=== PATIENT | male | born 1975 | race Caucasian/White ===

== ENCOUNTER 2019-05-04 11:49 | Inpatient (IN) | payer MEDICAID ==
[~2019-05-04] VITALS: Ht 167.6 cm; Wt 185.0 kg
[2019-05-04] MEDS ORDERED: HALOPERIDOL 5 MG TABLET PO PRN (13:00)
[2019-05-04 15:26] VITALS: BP 122/81
[2019-05-04] MEDS: OLANZapine 5 MG RAPDIS TABLET PO PRN (16:17)
[2019-05-04] MEDS: LORazepam 2 MG TABLET PO PRN (16:17)
[2019-05-04 16:25] VITALS: BP 114/72
[2019-05-05 01:35] VITALS: BP 148/86
[2019-05-05 03:34] VITALS: BP 130/90
[2019-05-05] MEDS: LORazepam 2 MG TABLET PO PRN ×4 (03:34→18:17)
[2019-05-05] MEDS ORDERED: PETROLATUM,WHITE 28 GM JELLY TP PRN (06:45)
[2019-05-05] MEDS ORDERED: MAGNESIUM HYDROXIDE SUSPENSION 30 ML UDCUP PO PRN (06:45)
[2019-05-05] MEDS ORDERED: LOPERAMIDE HCL 2 MG CAPSULE PO PRN (06:45)
[2019-05-05] MEDS ORDERED: CloNIDine HCL 0.1 MG TABLET PO PRN (06:45)
[2019-05-05] MEDS ORDERED: ALBUTEROL SULFATE HFA 90 MCG/PUFF 8 GM INHALER IH PRN (06:45)
[2019-05-05] MEDS ORDERED: MAG HYDROX/AL HYDROX/SIMETH ES 30 ML SUSPENSION UDCUP PO PRN (06:45)
[2019-05-05] MEDS ORDERED: BACITRACIN 28.4 GM OINTMENT TP PRN (06:45)
[2019-05-05] MEDS ORDERED: ACETAMINOPHEN 325 MG TABLET PO PRN (06:45)
[2019-05-05] MEDS ORDERED: ONDANSETRON HCL 4 MG TABLET PO PRN (06:45)
[2019-05-05] MEDS ORDERED: IBUPROFEN 600 MG TABLET PO PRN (06:45)
[2019-05-05] MEDS ORDERED: INFLUENZA VIRUS VACCINE QVS 2019-20 (3YR+)/PF 60 MCG/0.5 ML SYRINGE IM ONE (07:00)
[2019-05-05 07:57] LABS: BASOPHILS % (AUTO) 0.4 % (0.0-2.0); EOSINOPHILS % (AUTO) 3.3 % (1.0-6.0); HEMATOCRIT 49.4 % (41-53); HEMOGLOBIN 16.3 g/dL (13.5-17.5); LYMPHOCYTES # (AUTO) 3.1 K/uL (1.0-4.8); LYMPHOCYTES % (AUTO) 36.5 % (22.0-44.0); MEAN CORPUSCULAR HEMOGLOBIN 29.2 pg (26.0-34.0); MEAN CORPUSCULAR VOLUME 89 fL (80-100); MONOCYTES # (AUTO) 0.8 K/uL (0.1-1.0); MONOCYTES % (AUTO) 8.9 % (2.0-9.0); NEUTROPHILS # (AUTO) 4.3 K/uL (1.8-7.7); NEUTROPHILS % (AUTO) 50.9 % (40.0-70.0); PLATELET COUNT (AUTO) 281 K/uL (150-450); RED BLOOD CELL COUNT(AUTO) 5.57 MIL/uL (4.50-5.90); RED CELL DISTRIBUTION WIDTH 12.7 % (11.5-14.5)
[2019-05-05 08:18] LABS: ALANINE AMINOTRANSFERASE 41 U/L (12-78); ALBUMIN 3.7 g/dL (3.4-5.0); ALKALINE PHOSPHATASE 68 U/L (46-116); ANION GAP 9 mmol/L (8-16); ASPARTATE AMINOTRANSFERASE 19 U/L (15-37); BILIRUBIN,TOTAL 0.4 mg/dL (0.1-1.0); CALCIUM, TOTAL 9.2 mg/dL (8.8-10.5); CARBON DIOXIDE 26 mmol/L (22-29); CHLORIDE 105 mmol/L (98-107); CHOL/HDL RATIO 4.8 (4.2-7.3); CHOLESTEROL 176 mg/dL (131-200); CREATININE 0.98 mg/dL (0.60-1.30); FREE T4 (FREE THYROXINE) 1.11 ng/dL (0.76-1.46); GLOMERULAR FILTR. RATE CALC > 60 mL/min (>60); GLUCOSE,RANDOM 107 mg/dL (70-110); HDL CHOLESTEROL 37 mg/dL (40-60); LDL CHOL (CALC.) 103 mg/dL (0-130); SODIUM SERUM 140 mmol/L (136-145); THYROID STIMULATING HORMONE 1.16 uIU/mL (0.36-3.74); TOTAL PROTEIN, SERUM 7.2 g/dL (6.4-8.2); TRIGLYCERIDES 181 mg/dL (15-150); UREA NITROGEN, BLOOD 16 mg/dL (7-18)
[2019-05-05 08:21] VITALS: BP 128/86
[2019-05-05] MEDS: OMEPRAZOLE 20 MG CAPSULE PO SCH (08:45)
[2019-05-05] MEDS: DOCUSATE SODIUM 100 MG CAPSULE PO SCH (08:45)
[2019-05-05] MEDS: NICOTINE 21 MG/24 HOUR PATCH TD SCH (08:46)
[2019-05-05] MEDS: BuPROPion HCL XL 150 MG ER TABLET PO SCH (13:05)
[2019-05-05 16:07] VITALS: BP 109/80
[2019-05-05] MEDS: QUEtiapine FUMARATE 25 MG TABLET PO SCH (20:03)
[2019-05-06 02:36] VITALS: BP 123/82
[2019-05-06] MEDS: ZOLPIDEM TARTRATE 10 MG TABLET PO PRN (02:42)
[2019-05-06] MEDS: LORazepam 2 MG TABLET PO PRN ×4 (06:51→20:49)
[2019-05-06] MEDS: OLANZapine 5 MG RAPDIS TABLET PO PRN ×2 (06:52→21:04)
[2019-05-06 08:38] VITALS: BP 121/98
[2019-05-06] MEDS: BuPROPion HCL XL 150 MG ER TABLET PO SCH (08:44)
[2019-05-06] MEDS: DOCUSATE SODIUM 100 MG CAPSULE PO SCH (08:44)
[2019-05-06] MEDS: NICOTINE 21 MG/24 HOUR PATCH TD SCH (08:44)
[2019-05-06] MEDS: OMEPRAZOLE 20 MG CAPSULE PO SCH ×2 (08:44→08:59)
[2019-05-06 16:00] VITALS: BP 122/92
[2019-05-06] MEDS: QUEtiapine FUMARATE 25 MG TABLET PO SCH (20:46)
[2019-05-07 01:10] VITALS: BP 132/81
[2019-05-07 08:00] VITALS: BP 116/89
[2019-05-07] MEDS: LORazepam 2 MG TABLET PO PRN ×3 (08:01→16:30)
[2019-05-07] MEDS: DOCUSATE SODIUM 100 MG CAPSULE PO SCH (08:01)
[2019-05-07] MEDS: BuPROPion HCL XL 150 MG ER TABLET PO SCH (08:01)
[2019-05-07] MEDS: OMEPRAZOLE 20 MG CAPSULE PO SCH (08:01)
[2019-05-07] MEDS: NICOTINE 21 MG/24 HOUR PATCH TD SCH (08:01)
[2019-05-07 16:44] VITALS: BP 118/73
[2019-05-07] MEDS: OLANZapine 5 MG RAPDIS TABLET PO PRN (19:35)
[2019-05-07] MEDS: QUEtiapine FUMARATE 25 MG TABLET PO SCH (20:29)
[2019-05-08 01:27] VITALS: BP 117/82
[2019-05-08] MEDS: LORazepam 2 MG TABLET PO PRN ×4 (07:15→20:41)
[2019-05-08] MEDS: BuPROPion HCL XL 150 MG ER TABLET PO SCH (08:26)
[2019-05-08] MEDS: NICOTINE 21 MG/24 HOUR PATCH TD SCH (08:28)
[2019-05-08] MEDS: DOCUSATE SODIUM 100 MG CAPSULE PO SCH (08:31)
[2019-05-08] MEDS: OMEPRAZOLE 20 MG CAPSULE PO SCH (08:31)
[2019-05-08 09:09] VITALS: BP 135/95
[2019-05-08 16:10] VITALS: BP 129/85
[2019-05-08] MEDS: QUEtiapine FUMARATE 25 MG TABLET PO SCH (20:07)
[2019-05-09] MEDS: ZOLPIDEM TARTRATE 10 MG TABLET PO PRN ×2 (03:27→20:12)
[2019-05-09 03:39] VITALS: BP 109/73
[2019-05-09] MEDS: NICOTINE 21 MG/24 HOUR PATCH TD SCH (08:16)
[2019-05-09] MEDS: BuPROPion HCL XL 150 MG ER TABLET PO SCH (08:16)
[2019-05-09] MEDS: LORazepam 2 MG TABLET PO PRN ×2 (08:19→20:51)
[2019-05-09] MEDS: OMEPRAZOLE 20 MG CAPSULE PO SCH (08:20)
[2019-05-09] MEDS: DOCUSATE SODIUM 100 MG CAPSULE PO SCH (08:20)
[2019-05-09 08:31] VITALS: BP 136/91
[2019-05-09 16:09] VITALS: BP 131/73
[2019-05-09] MEDS: QUEtiapine FUMARATE 25 MG TABLET PO SCH (20:11)
[2019-05-10] MEDS: LORazepam 2 MG TABLET PO PRN ×2 (08:02→12:09)
[2019-05-10] MEDS: DOCUSATE SODIUM 100 MG CAPSULE PO SCH (08:03)
[2019-05-10] MEDS: BuPROPion HCL XL 150 MG ER TABLET PO SCH (08:03)
[2019-05-10] MEDS: OMEPRAZOLE 20 MG CAPSULE PO SCH (08:03)
[2019-05-10] MEDS: NICOTINE 21 MG/24 HOUR PATCH TD SCH (08:03)
[2019-05-10] MEDS: BENZOCAINE/MENTHOL LOZENGE MM PRN (08:59)
[2019-05-10 09:08] VITALS: BP 129/92
[2019-05-10] MEDS ORDERED: GuaiFENesin/D-METHORPHAN/PHENYLEPH 5 ML LIQUID ORAL.SYG PO PRN (10:00)
[2019-05-10 16:29] VITALS: BP 104/71
[2019-05-10] MEDS ORDERED: DiphenhydrAMINE HCL 50 MG CAPSULE PO PRN (18:15)
[2019-05-10] MEDS: QUEtiapine FUMARATE 25 MG TABLET PO SCH (21:12)
[2019-05-11] MEDS: OLANZapine 5 MG RAPDIS TABLET PO PRN ×2 (00:35→06:01)
[2019-05-11 03:45] VITALS: BP 111/84
[2019-05-11 07:45] LABS: BASOPHILS % (AUTO) 0.4 % (0.0-2.0); EOSINOPHILS % (AUTO) 6.9 % (1.0-6.0); HEMATOCRIT 47.7 % (41-53); HEMOGLOBIN 15.8 g/dL (13.5-17.5); LYMPHOCYTES # (AUTO) 3.9 K/uL (1.0-4.8); LYMPHOCYTES % (AUTO) 38.7 % (22.0-44.0); MEAN CORPUSCULAR HEMOGLOBIN 29.2 pg (26.0-34.0); MEAN CORPUSCULAR HGB CONC 33.1 G/dL (31.0-37.0); MEAN CORPUSCULAR VOLUME 89 fL (80-100); MONOCYTES # (AUTO) 0.9 K/uL (0.1-1.0); MONOCYTES % (AUTO) 8.7 % (2.0-9.0); NEUTROPHILS # (AUTO) 4.6 K/uL (1.8-7.7); NEUTROPHILS % (AUTO) 45.3 % (40.0-70.0); PLATELET COUNT (AUTO) 239 K/uL (150-450); RED BLOOD CELL COUNT(AUTO) 5.39 MIL/uL (4.50-5.90); RED CELL DISTRIBUTION WIDTH 12.9 % (11.5-14.5)
[2019-05-11 08:01] LABS: ALANINE AMINOTRANSFERASE 71 U/L (12-78); ALBUMIN 4.2 g/dL (3.4-5.0); ALKALINE PHOSPHATASE 82 U/L (46-116); ANION GAP 10 mmol/L (8-16); ASPARTATE AMINOTRANSFERASE 25 U/L (15-37); BILIRUBIN,TOTAL 0.3 mg/dL (0.1-1.0); CARBON DIOXIDE 28 mmol/L (22-29); CHLORIDE 102 mmol/L (98-107); CREATININE 0.98 mg/dL (0.60-1.30); GLOMERULAR FILTR. RATE CALC > 60 mL/min (>60); GLUCOSE,RANDOM 113 mg/dL (70-110); SODIUM SERUM 140 mmol/L (136-145); TOTAL PROTEIN, SERUM 7.4 g/dL (6.4-8.2); UREA NITROGEN, BLOOD 18 mg/dL (7-18)
[2019-05-11] MEDS: BuPROPion HCL XL 150 MG ER TABLET PO SCH (08:04)
[2019-05-11] MEDS: NICOTINE 21 MG/24 HOUR PATCH TD SCH (08:05)
[2019-05-11] MEDS: OMEPRAZOLE 20 MG CAPSULE PO SCH (08:07)
[2019-05-11] MEDS: DOCUSATE SODIUM 100 MG CAPSULE PO SCH (08:08)
[2019-05-11] MEDS: BENZOCAINE/MENTHOL LOZENGE MM PRN (08:27)
[2019-05-11] MEDS ORDERED: OMEGA-3/DHA/EPA/FISH OIL 1,000 MG CAPSULE PO SCH (09:00)
[2019-05-11] MEDS ORDERED: BUPR-93 PO (11:27)
[2019-05-11] MEDS ORDERED: QUET25TA PO (11:27)
== END 2019-05-11 13:15 | disposition home or self-care (01) | DRG 750 ==
LOC: B2S 12:57
PROVIDERS: ADMIT Psychiatry & Neurology Psychiatry; ATTEND Psychiatry & Neurology Psychiatry
DX: F25.9 Schizoaffective disorder, unspecified (principal); R45.851 Suicidal ideations; Z59.0 Homelessness; F17.200 Nicotine dependence, unspecified, uncomplicated; F41.9 Anxiety disorder, unspecified; G47.00 Insomnia, unspecified; F15.10 Other stimulant abuse, uncomplicated; K59.00 Constipation, unspecified; G89.29 Other chronic pain; Z28.21 Immunization not carried out because of patient refusal; Z88.2 Allergy status to sulfonamides; Z88.8 Allergy status to other drugs, medicaments and biological substances; Z71.6 Tobacco abuse counseling; Z71.51 Drug abuse counseling and surveillance of drug abuser
CPT/HCPCS: 84439; 84443; 90686

== ENCOUNTER 2019-09-19 15:00 | Inpatient (IN) | payer MEDICAID ==
[~2019-09-19] VITALS: Ht 167.6 cm; Wt 82.6 kg
[2019-09-19 14:56] VITALS: BP 108/82
[~2019-09-19 15:00] MED LIST: BUPR-93 PO; QUET25TA PO
[2019-09-19 15:36] VITALS: BP 152/90
[2019-09-19] MEDS ORDERED: PRAZ1 PO (15:58)
[2019-09-19] MEDS ORDERED: DIPH25CA85 PO (15:58)
[2019-09-19] MEDS ORDERED: OLAN5TAB2 PO (15:58)
[2019-09-19] MEDS ORDERED: BUPR100SR PO (15:58)
[2019-09-19] MEDS ORDERED: TRAZ-252 PO (15:58)
[2019-09-19] MEDS ORDERED: ZOLPIDEM TARTRATE 10 MG TABLET PO PRN (16:00)
[2019-09-19] MEDS ORDERED: BUPR-93 PO (16:00)
[2019-09-19 16:50] VITALS: BP 108/82
[2019-09-19] MEDS: QUEtiapine FUMARATE 100 MG TABLET PO PRN (17:43)
[2019-09-19] MEDS ORDERED: CloNIDine HCL 0.1 MG TABLET PO PRN (18:00)
[2019-09-19] MEDS: LORazepam 2 MG TABLET PO PRN (18:48)
[2019-09-19] MEDS: PRAZOSIN HCL 1 MG CAPSULE PO SCH (22:19)
[2019-09-19] MEDS: PNEUMOCOCCAL VACCINE POLYVALENT 0.5 ML VIAL [PPSV23] IM ONE (23:05)
[2019-09-20 00:01] VITALS: BP 104/62
[2019-09-20] MEDS: LORazepam 2 MG TABLET PO PRN ×4 (01:09→17:07)
[2019-09-20] MEDS: QUEtiapine FUMARATE 100 MG TABLET PO PRN ×2 (08:12→12:48)
[2019-09-20 08:13] VITALS: BP 135/82
[2019-09-20] MEDS: PNEUMOCOCCAL VACCINE POLYVALENT 0.5 ML VIAL [PPSV23] IM ONE (08:20)
[2019-09-20] MEDS: NICOTINE 21 MG/24 HOUR PATCH TD SCH (08:23)
[2019-09-20] MEDS ORDERED: IBUPROFEN 400 MG TABLET PO PRN (08:45)
[2019-09-20] MEDS ORDERED: NICOTINE 14 MG/24 HOUR PATCH TD PRN (08:45)
[2019-09-20] MEDS ORDERED: CloNIDine HCL 0.1 MG TABLET PO PRN (08:45)
[2019-09-20] MEDS ORDERED: GuaiFENesin/D-METHORPHAN [SUGAR-FREE] 200-20MG/10 ML SYRUP UDCUP PO PRN (08:45)
[2019-09-20] MEDS ORDERED: MAGNESIUM HYDROXIDE SUSPENSION 30 ML UDCUP PO PRN (08:45)
[2019-09-20] MEDS ORDERED: MAG HYDROX/AL HYDROX/SIMETH ES 30 ML SUSPENSION UDCUP PO PRN (08:45)
[2019-09-20] MEDS ORDERED: ALBUTEROL SULFATE HFA 90 MCG/PUFF 8 GM INHALER IH PRN (08:45)
[2019-09-20] MEDS ORDERED: ONDANSETRON HCL 4 MG TABLET PO PRN (08:45)
[2019-09-20] MEDS ORDERED: PETROLATUM,WHITE 28 GM JELLY TP PRN (08:45)
[2019-09-20] MEDS ORDERED: LOPERAMIDE HCL 2 MG CAPSULE PO PRN (08:45)
[2019-09-20] MEDS ORDERED: ACETAMINOPHEN 325 MG TABLET PO PRN (08:45)
[2019-09-20] MEDS ORDERED: DOCUSATE SODIUM 100 MG CAPSULE PO PRN (08:45)
[2019-09-20] MEDS: BuPROPion HCL XL 150 MG ER TABLET PO SCH (15:12)
[2019-09-20 16:00] VITALS: BP 111/73
[2019-09-20 20:35] VITALS: BP 116/72
[2019-09-20] MEDS: PRAZOSIN HCL 1 MG CAPSULE PO SCH (20:38)
[2019-09-20] MEDS: QUEtiapine FUMARATE 200 MG TABLET PO SCH (20:38)
[2019-09-21 01:01] VITALS: BP 113/66
[2019-09-21] MEDS: LORazepam 2 MG TABLET PO PRN ×3 (07:07→20:29)
[2019-09-21] MEDS: QUEtiapine FUMARATE 100 MG TABLET PO PRN ×2 (07:07→16:05)
[2019-09-21] MEDS: NICOTINE 21 MG/24 HOUR PATCH TD SCH (09:00)
[2019-09-21] MEDS: BuPROPion HCL XL 150 MG ER TABLET PO SCH (09:18)
[2019-09-21 09:20] VITALS: BP 106/72
[2019-09-21 16:01] VITALS: BP 118/79
[2019-09-21 20:28] VITALS: BP 126/82
[2019-09-21] MEDS: QUEtiapine FUMARATE 200 MG TABLET PO SCH (20:29)
[2019-09-21] MEDS: PRAZOSIN HCL 1 MG CAPSULE PO SCH (20:29)
[2019-09-22] MEDS: LORazepam 2 MG TABLET PO PRN ×4 (06:11→20:38)
[2019-09-22] MEDS: QUEtiapine FUMARATE 100 MG TABLET PO PRN (06:11)
[2019-09-22 08:01] VITALS: BP 122/76
[2019-09-22] MEDS: BuPROPion HCL XL 150 MG ER TABLET PO SCH (08:15)
[2019-09-22] MEDS: NICOTINE 21 MG/24 HOUR PATCH TD SCH (08:16)
[2019-09-22] MEDS: QUEtiapine FUMARATE 200 MG TABLET PO SCH ×2 (10:21→20:38)
[2019-09-22 16:05] VITALS: BP 117/78
[2019-09-22] MEDS: PRAZOSIN HCL 1 MG CAPSULE PO SCH (20:38)
[2019-09-23 05:43] VITALS: BP 119/72
[2019-09-23] MEDS: LORazepam 2 MG TABLET PO PRN (06:38)
[2019-09-23] MEDS: BuPROPion HCL XL 150 MG ER TABLET PO SCH (08:28)
[2019-09-23] MEDS: QUEtiapine FUMARATE 200 MG TABLET PO SCH ×2 (08:29→20:57)
[2019-09-23] MEDS: NICOTINE 21 MG/24 HOUR PATCH TD SCH (08:30)
[2019-09-23] MEDS: LORazepam 1 MG TABLET PO PRN ×3 (11:12→20:59)
[2019-09-23 16:49] VITALS: BP 128/83
[2019-09-23] MEDS: PRAZOSIN HCL 1 MG CAPSULE PO SCH (20:57)
[2019-09-24 02:25] VITALS: BP 128/87
[2019-09-24] MEDS: LORazepam 1 MG TABLET PO PRN ×2 (04:07→09:33)
[2019-09-24] MEDS: NICOTINE 21 MG/24 HOUR PATCH TD SCH (09:07)
[2019-09-24] MEDS: BuPROPion HCL XL 150 MG ER TABLET PO SCH (09:08)
[2019-09-24] MEDS: QUEtiapine FUMARATE 200 MG TABLET PO SCH (09:08)
[2019-09-24] MEDS ORDERED: QUET200T PO (11:05)
== END 2019-09-24 12:00 | disposition home or self-care (01) | DRG 885 ==
LOC: B2S 15:00 → B3A 09-21 22:24
PROC: 3E0234Z Introduction of Serum, Toxoid and Vaccine into Muscle, Percutaneous Approach (ICD-10-PCS; principal; 2019-09-19)
DX: F25.1 Schizoaffective disorder, depressive type (principal); F17.200 Nicotine dependence, unspecified, uncomplicated; F25.9 Schizoaffective disorder, unspecified; G47.00 Insomnia, unspecified; I10 Essential (primary) hypertension; K59.00 Constipation, unspecified; Z91.5 Personal history of self-harm; Z23 Encounter for immunization; Z81.8 Family history of other mental and behavioral disorders
CPT/HCPCS: 90732; G0009; Z7610

== ENCOUNTER 2019-12-05 17:19 | Inpatient (IN) | payer MEDICAID, OTHER ==
[~2019-12-05] VITALS: Ht 167.6 cm; Wt 79.3 kg
[~2019-12-05 17:19] MED LIST changes: +PRAZ1 PO; +QUET200T PO; -QUET25TA PO
[2019-12-05] MEDS ORDERED: DULO-8 PO (18:19)
[2019-12-05 18:46] LABS: COVID AG,FIA SOURCE NASOPHARYNGEAL
[2019-12-05 19:01] LABS: BASOPHILS % (AUTO) 0.5 % (0.0-2.0); HEMATOCRIT 43.1 % (41-53); HEMOGLOBIN 14.4 g/dL (13.5-17.5); LYMPHOCYTES # (AUTO) 2.1 K/uL (1.0-4.8); LYMPHOCYTES % (AUTO) 22.7 % (22.0-44.0); MEAN CORPUSCULAR HEMOGLOBIN 29.7 pg (26.0-34.0); MEAN CORPUSCULAR HGB CONC 33.4 G/dL (31.0-37.0); MEAN CORPUSCULAR VOLUME 89 fL (80-100); MONOCYTES # (AUTO) 0.9 K/uL (0.1-1.0); MONOCYTES % (AUTO) 9.6 % (2.0-9.0); NEUTROPHILS # (AUTO) 6.2 K/uL (1.8-7.7); NEUTROPHILS % (AUTO) 66.2 % (40.0-70.0); PLATELET COUNT (AUTO) 374 K/uL (150-450); RED BLOOD CELL COUNT(AUTO) 4.83 MIL/uL (4.50-5.90); RED CELL DISTRIBUTION WIDTH 13.7 % (11.5-14.5)
[2019-12-05 19:11] LABS: ANION GAP 6 mmol/L (8-16); CALCIUM, TOTAL 8.9 mg/dL (8.8-10.5); CARBON DIOXIDE 30 mmol/L (22-29); CHLORIDE 104 mmol/L (98-107); CREATININE 0.73 mg/dL (0.60-1.30); GLOMERULAR FILTR. RATE CALC > 60 mL/min (>60); GLUCOSE,RANDOM 89 mg/dL (70-110); POTASSIUM 3.7 mmol/L (3.5-5.1); SODIUM SERUM 140 mmol/L (136-145); UREA NITROGEN, BLOOD 12 mg/dL (7-18)
[2019-12-05 19:13] LABS: AMPHET/METH SCREEN,URINE POSITIVE (NEGATIVE); BARBITURATE SCREEN, URINE NEGATIVE (NEGATIVE); BENZODIAZEPINES SCREEN,URINE NEGATIVE (NEGATIVE); CANNABINOID SCREEN,URINE NEGATIVE (NEGATIVE); COCAINE SCREEN,URINE NEGATIVE (NEGATIVE); METHADONE SCREEN, URINE NEGATIVE (NEGATIVE); OPIATE SCREEN,URINE NEGATIVE (NEGATIVE); PHENCYCLIDINE SCREEN,URINE NEGATIVE (NEGATIVE)
[2019-12-05 19:17] LABS: ALANINE AMINOTRANSFERASE 31 U/L (12-78); ALBUMIN 3.8 g/dL (3.4-5.0); ALKALINE PHOSPHATASE 87 U/L (46-116); ASPARTATE AMINOTRANSFERASE 22 U/L (15-37); BILIRUBIN,TOTAL 0.3 mg/dL (0.1-1.0)
[2019-12-05] MEDS ORDERED: LORazepam 2 MG TABLET PO ONE (20:45)
[2019-12-05] MEDS ORDERED: INFLUENZA VIRUS VACCINE QVS 2020-21 (6MO+)/PF 60 MCG/0.5 ML SYRINGE IM ONE (23:00)
[2019-12-06] MEDS ORDERED: -PHARMACY VACCINE NOTE- MISC ONE (02:30)
[2019-12-06] MEDS: LORazepam 2 MG TABLET PO PRN ×3 (06:18→16:05)
[2019-12-06] MEDS ORDERED: PETROLATUM,WHITE 28 GM JELLY TP PRN (09:15)
[2019-12-06] MEDS ORDERED: ACETAMINOPHEN 325 MG TABLET PO PRN (09:15)
[2019-12-06] MEDS ORDERED: ALBUTEROL SULFATE HFA 90 MCG/PUFF 8 GM INHALER IH PRN (09:15)
[2019-12-06] MEDS ORDERED: CloNIDine HCL 0.1 MG TABLET PO PRN (09:15)
[2019-12-06] MEDS ORDERED: GuaiFENesin/D-METHORPHAN [SUGAR-FREE] 200-20MG/10 ML SYRUP UDCUP PO PRN (09:15)
[2019-12-06] MEDS ORDERED: MAG HYDROX/AL HYDROX/SIMETH ES 30 ML SUSPENSION UDCUP PO PRN (09:15)
[2019-12-06] MEDS ORDERED: ONDANSETRON HCL 4 MG TABLET PO PRN (09:15)
[2019-12-06] MEDS ORDERED: MAGNESIUM HYDROXIDE SUSPENSION 30 ML UDCUP PO PRN (09:15)
[2019-12-06] MEDS ORDERED: LOPERAMIDE HCL 2 MG CAPSULE PO PRN (09:15)
[2019-12-06] MEDS ORDERED: DOCUSATE SODIUM 100 MG CAPSULE PO PRN (09:15)
[2019-12-06 10:18] VITALS: BP 135/91
[2019-12-06] MEDS: QUEtiapine FUMARATE 100 MG TABLET PO PRN (10:20)
[2019-12-06] MEDS: IBUPROFEN 400 MG TABLET PO PRN (10:20)
[2019-12-06] MEDS: DULoxetine HCL 60 MG CAPSULE PO SCH (12:53)
[2019-12-06 16:42] VITALS: BP 113/80
[2019-12-06] MEDS: QUEtiapine FUMARATE 200 MG TABLET PO SCH (20:14)
[2019-12-07 07:59] VITALS: BP 118/69
[2019-12-07] MEDS: IBUPROFEN 400 MG TABLET PO PRN (07:59)
[2019-12-07] MEDS: LORazepam 2 MG TABLET PO PRN ×3 (07:59→15:56)
[2019-12-07] MEDS: DULoxetine HCL 60 MG CAPSULE PO SCH ×2 (08:01→11:50)
[2019-12-07] MEDS: QUEtiapine FUMARATE 100 MG TABLET PO PRN (15:56)
[2019-12-07 16:37] VITALS: BP 116/74
[2019-12-07] MEDS: QUEtiapine FUMARATE 200 MG TABLET PO SCH (20:11)
[2019-12-07] MEDS: ZOLPIDEM TARTRATE 10 MG TABLET PO PRN (20:13)
[2019-12-08] MEDS: LORazepam 2 MG TABLET PO PRN ×3 (08:02→17:40)
[2019-12-08] MEDS: QUEtiapine FUMARATE 100 MG TABLET PO PRN ×2 (08:02→12:33)
[2019-12-08] MEDS: IBUPROFEN 400 MG TABLET PO PRN (08:02)
[2019-12-08] MEDS: DULoxetine HCL 60 MG CAPSULE PO SCH (08:02)
[2019-12-08 17:08] VITALS: BP 123/79
[2019-12-08] MEDS: QUEtiapine FUMARATE 200 MG TABLET PO SCH (20:01)
[2019-12-09] MEDS: QUEtiapine FUMARATE 100 MG TABLET PO PRN ×3 (08:17→16:55)
[2019-12-09 08:18] VITALS: BP 96/53
[2019-12-09] MEDS: LORazepam 2 MG TABLET PO PRN ×3 (08:18→16:55)
[2019-12-09] MEDS: DULoxetine HCL 60 MG CAPSULE PO SCH (08:18)
[2019-12-09] MEDS: IBUPROFEN 400 MG TABLET PO PRN (08:18)
[2019-12-09] MEDS: TraMADol HCL 50 MG TABLET PO PRN (12:22)
[2019-12-09 16:46] VITALS: BP 101/78
[2019-12-09] MEDS: ZOLPIDEM TARTRATE 10 MG TABLET PO PRN (20:12)
[2019-12-09] MEDS: QUEtiapine FUMARATE 200 MG TABLET PO SCH (20:12)
[2019-12-10] MEDS: LORazepam 2 MG TABLET PO PRN ×4 (04:23→16:11)
[2019-12-10] MEDS: QUEtiapine FUMARATE 100 MG TABLET PO PRN ×4 (04:23→16:11)
[2019-12-10] MEDS: TraMADol HCL 50 MG TABLET PO PRN (08:09)
[2019-12-10] MEDS: DULoxetine HCL 60 MG CAPSULE PO SCH (08:09)
[2019-12-10 08:51] VITALS: BP 140/86
[2019-12-10 16:50] VITALS: BP 105/70
[2019-12-10] MEDS: QUEtiapine FUMARATE 200 MG TABLET PO SCH (21:09)
[2019-12-10] MEDS: ZOLPIDEM TARTRATE 10 MG TABLET PO PRN (21:09)
[2019-12-11] MEDS: QUEtiapine FUMARATE 100 MG TABLET PO PRN ×3 (04:01→12:40)
[2019-12-11] MEDS: LORazepam 2 MG TABLET PO PRN ×4 (04:01→17:58)
[2019-12-11 08:00] VITALS: BP 124/84
[2019-12-11] MEDS: DULoxetine HCL 60 MG CAPSULE PO SCH (08:08)
[2019-12-11 16:57] VITALS: BP 104/72
[2019-12-11] MEDS: QUEtiapine FUMARATE 200 MG TABLET PO SCH (21:02)
[2019-12-12 08:00] VITALS: BP 110/72
[2019-12-12] MEDS: QUEtiapine FUMARATE 100 MG TABLET PO PRN ×2 (08:01→12:04)
[2019-12-12] MEDS: LORazepam 2 MG TABLET PO PRN ×3 (08:01→16:16)
[2019-12-12] MEDS: DULoxetine HCL 60 MG CAPSULE PO SCH (08:03)
[2019-12-12 13:18] VITALS: BP 103/76
[2019-12-12] MEDS: TraMADol HCL 50 MG TABLET PO PRN (13:18)
[2019-12-12 17:16] VITALS: BP 114/75
[2019-12-12] MEDS: QUEtiapine FUMARATE 200 MG TABLET PO SCH (20:22)
[2019-12-13] MEDS: LORazepam 2 MG TABLET PO PRN ×3 (00:47→13:06)
[2019-12-13] MEDS: TraMADol HCL 50 MG TABLET PO PRN ×3 (00:47→19:59)
[2019-12-13 00:48] VITALS: BP 127/61
[2019-12-13] MEDS: DULoxetine HCL 60 MG CAPSULE PO SCH (07:38)
[2019-12-13] MEDS: QUEtiapine FUMARATE 100 MG TABLET PO PRN ×2 (07:38→13:06)
[2019-12-13] MEDS: NICOTINE 14 MG/24 HOUR PATCH TD PRN (07:38)
[2019-12-13] MEDS: IBUPROFEN 400 MG TABLET PO PRN (07:38)
[2019-12-13 08:38] VITALS: BP 134/82
[2019-12-13 16:54] VITALS: BP 119/81
[2019-12-13 20:00] VITALS: BP 119/80
[2019-12-13] MEDS: QUEtiapine FUMARATE 200 MG TABLET PO SCH (20:17)
[2019-12-14] MEDS: IBUPROFEN 400 MG TABLET PO PRN (03:28)
[2019-12-14] MEDS: LORazepam 2 MG TABLET PO PRN ×4 (03:28→17:57)
[2019-12-14] MEDS: QUEtiapine FUMARATE 100 MG TABLET PO PRN ×3 (03:28→12:58)
[2019-12-14] MEDS: TraMADol HCL 50 MG TABLET PO PRN ×2 (04:53→12:58)
[2019-12-14 08:00] VITALS: BP 100/70
[2019-12-14] MEDS: BuPROPion HCL XL 150 MG ER TABLET PO SCH (08:03)
[2019-12-14 12:44] VITALS: BP 144/89
[2019-12-14] MEDS: NICOTINE 14 MG/24 HOUR PATCH TD PRN (12:57)
[2019-12-14 16:10] VITALS: BP 110/85
[2019-12-14] MEDS: QUEtiapine FUMARATE 200 MG TABLET PO SCH (21:44)
[2019-12-15 08:00] VITALS: BP 112/81
[2019-12-15] MEDS: QUEtiapine FUMARATE 100 MG TABLET PO PRN ×2 (08:20→13:10)
[2019-12-15] MEDS: LORazepam 2 MG TABLET PO PRN ×2 (08:20→13:11)
[2019-12-15] MEDS: BuPROPion HCL XL 150 MG ER TABLET PO SCH (08:20)
[2019-12-15] MEDS: TraMADol HCL 50 MG TABLET PO PRN (08:22)
[2019-12-15 12:28] VITALS: BP 117/80
[2019-12-15] MEDS: IBUPROFEN 400 MG TABLET PO PRN (14:49)
[2019-12-15 16:44] VITALS: BP 102/65
[2019-12-15] MEDS: QUEtiapine FUMARATE 200 MG TABLET PO SCH (20:04)
[2019-12-15] MEDS: ZOLPIDEM TARTRATE 10 MG TABLET PO PRN (20:04)
[2019-12-16 05:15] VITALS: BP 115/80
[2019-12-16] MEDS: QUEtiapine FUMARATE 100 MG TABLET PO PRN (05:18)
[2019-12-16] MEDS: TraMADol HCL 50 MG TABLET PO PRN (05:18)
[2019-12-16] MEDS: LORazepam 2 MG TABLET PO PRN (07:52)
[2019-12-16] MEDS: BuPROPion HCL XL 150 MG ER TABLET PO SCH (07:58)
[2019-12-16] MEDS ORDERED: DiphenhydrAMINE HCL 50 MG/ML VIAL IM ONE (08:30)
[2019-12-16] MEDS ORDERED: LORazepam 2 MG/ML VIAL IM ONE (08:30)
[2019-12-16] MEDS ORDERED: ChlorproMAZINE HCL 50 MG/2 ML AMP IM ONE (08:30)
[2019-12-16 11:12] VITALS: BP 103/74
== END 2019-12-16 09:00 | disposition home or self-care (01) | DRG 750 ==
LOC: EMS 17:21 → 3EC 21:51
DX: F25.0 Schizoaffective disorder, bipolar type (principal); F15.10 Other stimulant abuse, uncomplicated; I10 Essential (primary) hypertension; K59.00 Constipation, unspecified; R45.851 Suicidal ideations; F11.90 Opioid use, unspecified, uncomplicated; F41.9 Anxiety disorder, unspecified; G47.00 Insomnia, unspecified; Y04.0XXA Assault by unarmed brawl or fight, initial encounter; S62.319A Displaced fracture of base of unspecified metacarpal bone, initial encounter for closed fracture; Z20.828 Contact with and (suspected) exposure to other viral communicable diseases; F17.210 Nicotine dependence, cigarettes, uncomplicated; Z79.899 Other long term (current) drug therapy; Z81.8 Family history of other mental and behavioral disorders; Z91.5 Personal history of self-harm; Z28.21 Immunization not carried out because of patient refusal; Z88.8 Allergy status to other drugs, medicaments and biological substances; Z88.2 Allergy status to sulfonamides; Y93.89 Activity, other specified; Y92.89 Other specified places as the place of occurrence of the external cause; Y99.8 Other external cause status
CPT/HCPCS: 87426; G0480; J1200; J2060; J3230

== ENCOUNTER 2021-01-12 17:46 | Inpatient (IN) | payer MEDICAID ==
[~2021-01-12] VITALS: Ht 165.1 cm; Wt 89.8 kg
[2021-01-12 20:12] LABS: GLUCOMETER DEV NAME(LOC) POC.BV
[2021-01-12] MEDS ORDERED: INFLUENZA VIRUS VACCINE QVS 2021-22 (6MO+)/PF 60 MCG/0.5 ML SYRINGE IM. ONE (23:45)
[2021-01-12] MEDS ORDERED: -PHARMACY VACCINE NOTE- MISC ONE (23:45)
[2021-01-13] MEDS: LORazepam 2 MG TABLET PO PRN ×3 (00:34→17:20)
[2021-01-13 01:09] VITALS: BP 115/76
[2021-01-13] MEDS ORDERED: LOPERAMIDE HCL 2 MG CAPSULE PO PRN (08:00)
[2021-01-13] MEDS ORDERED: PETROLATUM,WHITE 28 GM JELLY TP PRN (08:00)
[2021-01-13] MEDS ORDERED: BENZOCAINE/MENTHOL LOZENGE PO PRN (08:00)
[2021-01-13] MEDS ORDERED: CloNIDine HCL 0.1 MG TABLET PO PRN (08:00)
[2021-01-13] MEDS ORDERED: BACITRACIN 28 GM OINTMENT TP PRN (08:00)
[2021-01-13] MEDS ORDERED: ALBUTEROL SULFATE HFA 90 MCG/PUFF 8 GM INHALER IH PRN (08:00)
[2021-01-13] MEDS ORDERED: ONDANSETRON HCL 4 MG TABLET PO PRN (08:00)
[2021-01-13] MEDS ORDERED: DOCUSATE SODIUM 100 MG CAPSULE PO PRN (08:00)
[2021-01-13] MEDS ORDERED: IBUPROFEN 600 MG TABLET PO PRN (08:00)
[2021-01-13] MEDS ORDERED: MAGNESIUM HYDROXIDE SUSPENSION 30 ML UDCUP PO PRN (08:00)
[2021-01-13] MEDS ORDERED: ACETAMINOPHEN 325 MG TABLET PO PRN (08:00)
[2021-01-13] MEDS ORDERED: OMEPRAZOLE 20 MG CAPSULE PO PRN (08:00)
[2021-01-13] MEDS ORDERED: MAG HYDROX/AL HYDROX/SIMETH ES 30 ML SUSPENSION UDCUP PO PRN (08:00)
[2021-01-13 09:08] VITALS: BP 120/74
[2021-01-13 16:15] VITALS: BP 115/67
[2021-01-13] MEDS: BuPROPion HCL XL 150 MG ER TABLET PO SCH (17:08)
[2021-01-13] MEDS: GABAPENTIN 300 MG CAPSULE PO SCH (17:09)
[2021-01-13] MEDS: QUEtiapine FUMARATE 300 MG ER TABLET PO SCH (20:51)
[2021-01-14 03:56] VITALS: BP 133/89
[2021-01-14] MEDS: LORazepam 2 MG TABLET PO PRN ×4 (07:04→20:25)
[2021-01-14] MEDS: BuPROPion HCL XL 150 MG ER TABLET PO SCH (08:39)
[2021-01-14] MEDS: GABAPENTIN 300 MG CAPSULE PO SCH ×3 (08:39→16:54)
[2021-01-14 09:57] VITALS: BP 84/116
[2021-01-14 16:13] VITALS: BP 121/80
[2021-01-14] MEDS: QUEtiapine FUMARATE 100 MG TABLET PO PRN (18:28)
[2021-01-14] MEDS: QUEtiapine FUMARATE 300 MG ER TABLET PO SCH (20:25)
[2021-01-15 00:35] VITALS: BP 118/78
[2021-01-15] MEDS: ZOLPIDEM TARTRATE 10 MG TABLET PO PRN (00:52)
[2021-01-15] MEDS: GABAPENTIN 300 MG CAPSULE PO SCH ×3 (09:20→16:13)
[2021-01-15] MEDS: BuPROPion HCL XL 150 MG ER TABLET PO SCH (09:22)
[2021-01-15 09:24] VITALS: BP 125/84
[2021-01-15] MEDS: LORazepam 2 MG TABLET PO PRN ×3 (09:24→18:38)
[2021-01-15] MEDS: NICOTINE POLACRILEX 2 MG LOZENGE PO PRN ×2 (13:57→20:39)
[2021-01-15 16:47] VITALS: BP 127/87
[2021-01-15] MEDS: QUEtiapine FUMARATE 300 MG ER TABLET PO SCH (20:39)
[2021-01-16 06:34] VITALS: BP 123/86
[2021-01-16 08:19] VITALS: BP 133/79
[2021-01-16] MEDS: BuPROPion HCL XL 150 MG ER TABLET PO SCH (08:35)
[2021-01-16] MEDS: GABAPENTIN 300 MG CAPSULE PO SCH ×3 (08:35→16:11)
[2021-01-16] MEDS: LORazepam 2 MG TABLET PO PRN ×4 (08:35→20:38)
[2021-01-16] MEDS: NICOTINE POLACRILEX 2 MG LOZENGE PO PRN (09:00)
[2021-01-16 16:16] VITALS: BP 142/87
[2021-01-16] MEDS: QUEtiapine FUMARATE 200 MG ER TABLET PO SCH (20:17)
[2021-01-17 03:12] VITALS: BP 132/74
[2021-01-17 08:15] VITALS: BP 131/80
[2021-01-17] MEDS: BuPROPion HCL XL 150 MG ER TABLET PO SCH (08:45)
[2021-01-17] MEDS: LORazepam 2 MG TABLET PO PRN ×3 (08:45→17:53)
[2021-01-17] MEDS: QUEtiapine FUMARATE 100 MG TABLET PO PRN (08:46)
[2021-01-17] MEDS: GABAPENTIN 300 MG CAPSULE PO SCH ×3 (08:46→16:37)
[2021-01-17 17:39] VITALS: BP 132/85
[2021-01-17] MEDS: NICOTINE POLACRILEX 2 MG LOZENGE PO PRN (17:53)
[2021-01-17] MEDS: QUEtiapine FUMARATE 200 MG ER TABLET PO SCH (20:09)
[2021-01-18 06:36] VITALS: BP 130/78
[2021-01-18] MEDS: LORazepam 2 MG TABLET PO PRN ×4 (06:52→18:18)
[2021-01-18 07:59] LABS: BASOPHILS % (AUTO) 0.5 % (0.0-2.0); EOSINOPHILS % (AUTO) 7.1 % (1.0-6.0); HEMATOCRIT 42.1 % (41-53); HEMOGLOBIN 14.1 g/dL (13.5-17.5); LYMPHOCYTES # (AUTO) 1.6 K/uL (1.0-4.8); LYMPHOCYTES % (AUTO) 36.5 % (22.0-44.0); MEAN CORPUSCULAR HEMOGLOBIN 29.8 pg (26.0-34.0); MEAN CORPUSCULAR HGB CONC 33.4 G/dL (31.0-37.0); MEAN CORPUSCULAR VOLUME 89 fL (80-100); MONOCYTES # (AUTO) 0.6 K/uL (0.1-1.0); MONOCYTES % (AUTO) 13.8 % (2.0-9.0); NEUTROPHILS # (AUTO) 1.9 K/uL (1.8-7.7); NEUTROPHILS % (AUTO) 42.1 % (40.0-70.0); PLATELET COUNT (AUTO) 261 K/uL (150-450); RED BLOOD CELL COUNT(AUTO) 4.71 MIL/uL (4.50-5.90); RED CELL DISTRIBUTION WIDTH 14.6 % (11.5-14.5)
[2021-01-18 08:16] LABS: ALANINE AMINOTRANSFERASE 31 U/L (12-78); ALBUMIN 3.3 g/dL (3.4-5.0); ALKALINE PHOSPHATASE 70 U/L (46-116); ANION GAP 3 mmol/L (8-16); ASPARTATE AMINOTRANSFERASE 19 U/L (15-37); BILIRUBIN,TOTAL 0.3 mg/dL (0.1-1.0); CALCIUM, TOTAL 8.1 mg/dL (8.8-10.5); CARBON DIOXIDE 30 mmol/L (22-29); CHLORIDE 107 mmol/L (98-107); CHOL/HDL RATIO 4.5 (4.2-7.3); CHOLESTEROL 187 mg/dL (131-200); CREATININE 0.88 mg/dL (0.60-1.30); FREE T4 (FREE THYROXINE) 0.84 ng/dL (0.76-1.46); GLOMERULAR FILTR. RATE CALC > 60 mL/min (>60); GLUCOSE,RANDOM 101 mg/dL (70-110); HDL CHOLESTEROL 42 mg/dL (40-60); HEMOGLOBIN A1C 5.6 % (3.8-5.6); LDL CHOL (CALC.) 113 mg/dL (0-130); POTASSIUM 4.1 mmol/L (3.5-5.1); SODIUM SERUM 140 mmol/L (136-145); THYROID STIMULATING HORMONE 1.72 uIU/mL (0.36-3.74); TOTAL PROTEIN, SERUM 6.7 g/dL (6.4-8.2); TRIGLYCERIDES 159 mg/dL (15-150); UREA NITROGEN, BLOOD 15 mg/dL (7-18)
[2021-01-18 08:37] VITALS: BP 115/76
[2021-01-18] MEDS: GABAPENTIN 300 MG CAPSULE PO SCH ×3 (08:45→16:12)
[2021-01-18] MEDS: BuPROPion HCL XL 150 MG ER TABLET PO SCH (08:45)
[2021-01-18] MEDS: NICOTINE POLACRILEX 2 MG LOZENGE PO PRN ×2 (11:51→18:18)
[2021-01-18 16:14] VITALS: BP 125/83
[2021-01-18] MEDS: QUEtiapine FUMARATE 200 MG ER TABLET PO SCH (20:05)
[2021-01-18] MEDS: ZOLPIDEM TARTRATE 10 MG TABLET PO PRN (20:05)
[2021-01-18] MEDS: QUEtiapine FUMARATE 100 MG TABLET PO PRN (23:46)
[2021-01-19] MEDS: LORazepam 2 MG TABLET PO PRN ×3 (06:52→20:17)
[2021-01-19 08:14] VITALS: BP 128/72
[2021-01-19] MEDS: BuPROPion HCL XL 150 MG ER TABLET PO SCH (08:16)
[2021-01-19] MEDS: GABAPENTIN 300 MG CAPSULE PO SCH ×3 (08:16→16:01)
[2021-01-19] MEDS: NICOTINE POLACRILEX 2 MG LOZENGE PO PRN (08:16)
[2021-01-19] MEDS: NICOTINE 21 MG/24 HOUR PATCH TD PRN (16:02)
[2021-01-19 16:16] VITALS: BP 130/71
[2021-01-19] MEDS: ZOLPIDEM TARTRATE 10 MG TABLET PO PRN (20:17)
[2021-01-19] MEDS: QUEtiapine FUMARATE 200 MG ER TABLET PO SCH (20:17)
[2021-01-20 04:00] VITALS: BP 108/72
[2021-01-20 08:50] VITALS: BP 120/60
[2021-01-20] MEDS: BuPROPion HCL XL 150 MG ER TABLET PO SCH (08:59)
[2021-01-20] MEDS: GABAPENTIN 300 MG CAPSULE PO SCH ×3 (09:00→16:07)
[2021-01-20] MEDS: LORazepam 2 MG TABLET PO PRN ×3 (09:00→17:42)
[2021-01-20] MEDS: NICOTINE 21 MG/24 HOUR PATCH TD PRN (09:01)
[2021-01-20 16:18] VITALS: BP 131/80
[2021-01-20] MEDS: ZOLPIDEM TARTRATE 10 MG TABLET PO PRN (20:52)
[2021-01-20] MEDS: QUEtiapine FUMARATE 200 MG ER TABLET PO SCH (20:52)
[2021-01-21 05:03] VITALS: BP 106/75
[2021-01-21] MEDS: GABAPENTIN 300 MG CAPSULE PO SCH ×2 (08:01→12:10)
[2021-01-21] MEDS: LORazepam 2 MG TABLET PO PRN (08:01)
[2021-01-21] MEDS: BuPROPion HCL XL 150 MG ER TABLET PO SCH (08:01)
[2021-01-21 08:03] VITALS: BP 109/69
[2021-01-21] MEDS: NICOTINE 21 MG/24 HOUR PATCH TD PRN (10:36)
[2021-01-21] MEDS ORDERED: QUET200T PO (11:03)
[2021-01-21] MEDS ORDERED: BUPR-93 PO (11:03)
[2021-01-21] MEDS ORDERED: GABA-1181 PO (11:03)
== END 2021-01-21 12:45 | disposition home or self-care (01) | DRG 750 ==
LOC: B3A 23:19
PROVIDERS: ADMIT Psychiatry & Neurology Psychiatry; ATTEND Psychiatry & Neurology Psychiatry
DX: F20.9 Schizophrenia, unspecified (principal); E78.5 Hyperlipidemia, unspecified; F32.A Depression, unspecified; F41.9 Anxiety disorder, unspecified; G47.00 Insomnia, unspecified; I10 Essential (primary) hypertension; J44.9 Chronic obstructive pulmonary disease, unspecified; K59.00 Constipation, unspecified; Z20.822 Contact with and (suspected) exposure to COVID-19; F17.200 Nicotine dependence, unspecified, uncomplicated; Z71.6 Tobacco abuse counseling; Z88.2 Allergy status to sulfonamides; Z88.8 Allergy status to other drugs, medicaments and biological substances; Z28.21 Immunization not carried out because of patient refusal
CPT/HCPCS: 80053; 80061; 83036; 84439; 84443; 85025; Q9967

== ENCOUNTER 2022-01-13 17:26 | Inpatient (IN) | payer MEDICAID ==
[~2022-01-13] VITALS: Ht 167.6 cm; Wt 93.0 kg
[~2022-01-13 17:26] MED LIST changes: +BUPR-50 PO; -BUPR-93 PO; +GABA-1181 PO; -PRAZ1 PO
[2022-01-13] MEDS ORDERED: QUEtiapine FUMARATE 100 MG TABLET PO PRN (19:30)
[2022-01-13] MEDS ORDERED: ZOLPIDEM TARTRATE 10 MG TABLET PO PRN (19:30)
[2022-01-13 19:46] LABS: GLUCOMETER DEV NAME(LOC) POC.BV
[2022-01-13] MEDS ORDERED: INFLUENZA VIRUS VACCINE QVS 2022-23 (6MO+)/PF 60 MCG/0.5 ML SYRINGE IM. ONE (21:30)
[2022-01-13] MEDS: LORazepam 2 MG TABLET PO PRN (21:56)
[2022-01-13 22:21] VITALS: BP 126/87
[2022-01-14] MEDS: LORazepam 2 MG TABLET PO PRN ×3 (03:51→15:58)
[2022-01-14 07:23] LABS: BASOPHILS % (AUTO) 0.5 % (0.0-2.0); EOSINOPHILS % (AUTO) 6.6 % (1.0-6.0); HEMATOCRIT 39.8 % (41-53); HEMOGLOBIN 13.3 g/dL (13.5-17.5); LYMPHOCYTES # (AUTO) 1.8 K/uL (1.0-4.8); MEAN CORPUSCULAR HEMOGLOBIN 28.8 pg (26.0-34.0); MEAN CORPUSCULAR HGB CONC 33.5 G/dL (31.0-37.0); MEAN CORPUSCULAR VOLUME 86 fL (80-100); MONOCYTES % (AUTO) 13.6 % (2.0-9.0); NEUTROPHILS # (AUTO) 4.2 K/uL (1.8-7.7); NEUTROPHILS % (AUTO) 55.3 % (40.0-70.0); PLATELET COUNT (AUTO) 246 K/uL (150-450); RED BLOOD CELL COUNT(AUTO) 4.63 MIL/uL (4.50-5.90); RED CELL DISTRIBUTION WIDTH 13.5 % (11.5-14.5)
[2022-01-14 07:33] LABS: HEMOGLOBIN A1C 5.8 % (3.8-5.6)
[2022-01-14 07:47] LABS: ALANINE AMINOTRANSFERASE 40 U/L (12-78); ALBUMIN 3.4 g/dL (3.4-5.0); ALKALINE PHOSPHATASE 104 U/L (46-116); ANION GAP 6 mmol/L (8-16); ASPARTATE AMINOTRANSFERASE 26 U/L (15-37); BILIRUBIN,TOTAL 0.3 mg/dL (0.1-1.0); CALCIUM, TOTAL 8.8 mg/dL (8.8-10.5); CARBON DIOXIDE 29 mmol/L (22-29); CHLORIDE 103 mmol/L (98-107); CHOL/HDL RATIO 5.3 (4.2-7.3); CHOLESTEROL 197 mg/dL (131-200); CREATININE 0.97 mg/dL (0.60-1.30); FREE T4 (FREE THYROXINE) 0.83 ng/dL (0.76-1.46); GLOMERULAR FILTR. RATE CALC > 60 mL/min (>60); GLUCOSE,RANDOM 108 mg/dL (70-110); HDL CHOLESTEROL 37 mg/dL (40-60); LDL CHOL (CALC.) 121 mg/dL (0-130); POTASSIUM 3.8 mmol/L (3.5-5.1); SODIUM SERUM 138 mmol/L (136-145); THYROID STIMULATING HORMONE 1.59 uIU/mL (0.36-3.74); TOTAL PROTEIN, SERUM 6.6 g/dL (6.4-8.2); TRIGLYCERIDES 193 mg/dL (15-150); UREA NITROGEN, BLOOD 14 mg/dL (7-18)
[2022-01-14] MEDS ORDERED: BENZOCAINE/MENTHOL LOZENGE PO PRN (08:15)
[2022-01-14] MEDS ORDERED: OMEPRAZOLE 20 MG CAPSULE PO PRN (08:15)
[2022-01-14] MEDS ORDERED: DOCUSATE SODIUM 100 MG CAPSULE PO PRN (08:15)
[2022-01-14] MEDS ORDERED: PETROLATUM,WHITE 28 GM JELLY TP PRN (08:15)
[2022-01-14] MEDS ORDERED: ACETAMINOPHEN 325 MG TABLET PO PRN (08:15)
[2022-01-14] MEDS ORDERED: CloNIDine HCL 0.1 MG TABLET PO PRN (08:15)
[2022-01-14] MEDS ORDERED: ONDANSETRON HCL 4 MG TABLET PO PRN (08:15)
[2022-01-14] MEDS ORDERED: ALBUTEROL SULFATE HFA 90 MCG/PUFF 8 GM INHALER IH PRN (08:15)
[2022-01-14] MEDS ORDERED: LOPERAMIDE HCL 2 MG CAPSULE PO PRN (08:15)
[2022-01-14] MEDS ORDERED: MAGNESIUM HYDROXIDE SUSPENSION 30 ML UDCUP PO PRN (08:15)
[2022-01-14] MEDS ORDERED: MAG HYDROX/AL HYDROX/SIMETH ES 30 ML SUSPENSION UDCUP PO PRN (08:15)
[2022-01-14] MEDS ORDERED: BACITRACIN 28 GM OINTMENT TP PRN (08:15)
[2022-01-14] MEDS ORDERED: IBUPROFEN 600 MG TABLET PO PRN (08:15)
[2022-01-14 08:27] VITALS: BP 140/76
[2022-01-14] MEDS: BuPROPion HCL 150 MG SR TABLET PO SCH (08:46)
[2022-01-14] MEDS: DIVALPROEX SODIUM 500 MG DR TABLET PO SCH ×2 (08:46→15:58)
[2022-01-14] MEDS: GABAPENTIN 300 MG CAPSULE PO SCH ×3 (08:49→15:58)
[2022-01-14] MEDS: NICOTINE 14 MG/24 HOUR PATCH TD SCH (08:51)
[2022-01-14 14:14] LABS: APPEARANCE,URINE CLEAR (CLEAR); BILIRUBIN,URINE NEGATIVE (NEGATIVE); GLUCOSE, URINE (UA) NEGATIVE (NEGATIVE); KETONES,URINE NEGATIVE (NEGATIVE); LEUKOCYTE ESTERASE ,URINE NEGATIVE (NEGATIVE); NITRATE,URINE NEGATIVE (NEGATIVE); OCCULT BLOOD,URINE NEGATIVE (NEGATIVE); PH,URINE 7.5 (5.0-8.0); PROTEIN,URINE TRACE mg/dL (NEGATIVE); SPECIFIC GRAVITIY, URINE 1.024 (1.003-1.030); UROBILINOGEN,URINE <=1.0 mg/dL (<=1.0)
[2022-01-14 14:24] LABS: AMPHET/METH SCREEN,URINE NEGATIVE (NEGATIVE); BARBITURATE SCREEN, URINE NEGATIVE (NEGATIVE); BENZODIAZEPINES SCREEN,URINE NEGATIVE (NEGATIVE); CANNABINOID SCREEN,URINE NEGATIVE (NEGATIVE); COCAINE SCREEN,URINE NEGATIVE (NEGATIVE); METHADONE SCREEN, URINE NEGATIVE (NEGATIVE); OPIATE SCREEN,URINE NEGATIVE (NEGATIVE)
[2022-01-14 14:25] LABS: PHENCYCLIDINE SCREEN,URINE NEGATIVE (NEGATIVE)
[2022-01-14] MEDS: QUEtiapine FUMARATE 200 MG TABLET PO SCH (20:08)
[2022-01-14 20:09] VITALS: BP 130/82
[2022-01-15] MEDS: GABAPENTIN 300 MG CAPSULE PO SCH ×3 (08:19→16:15)
[2022-01-15] MEDS: DIVALPROEX SODIUM 500 MG DR TABLET PO SCH ×2 (08:19→16:16)
[2022-01-15] MEDS: LORazepam 2 MG TABLET PO PRN ×3 (08:19→20:02)
[2022-01-15] MEDS: BuPROPion HCL 150 MG SR TABLET PO SCH (08:19)
[2022-01-15] MEDS: NICOTINE 14 MG/24 HOUR PATCH TD SCH (08:19)
[2022-01-15 08:23] VITALS: BP 125/66
[2022-01-15] MEDS: QUEtiapine FUMARATE 200 MG TABLET PO SCH (20:02)
[2022-01-15 20:12] VITALS: BP 134/76
[2022-01-16 05:26] VITALS: BP 128/84
[2022-01-16] MEDS: LORazepam 2 MG TABLET PO PRN ×2 (06:01→12:01)
[2022-01-16] MEDS: NICOTINE 14 MG/24 HOUR PATCH TD SCH (08:23)
[2022-01-16] MEDS: DIVALPROEX SODIUM 500 MG DR TABLET PO SCH (08:26)
[2022-01-16] MEDS: GABAPENTIN 300 MG CAPSULE PO SCH ×2 (08:26→12:01)
[2022-01-16] MEDS: BuPROPion HCL 150 MG SR TABLET PO SCH (08:26)
[2022-01-16 09:27] VITALS: BP 132/78
[2022-01-16] MEDS ORDERED: NICOTINE 21 MG/24 HOUR PATCH TD SCH (13:15)
[2022-01-16 14:11] LABS: GLUCOMETER DEV NAME(LOC) BV3N.; GLUCOSE,POINT OF CARE 95 MG/DL (70-110)
[2022-01-16] MEDS ORDERED: GABA-1181 PO ×2 (14:15→17:01)
[2022-01-16] MEDS ORDERED: BUPR-72 PO (14:15)
[2022-01-16] MEDS ORDERED: DIVA-112 PO ×2 (14:15→17:01)
[2022-01-16] MEDS ORDERED: QUET200T30 PO (17:01)
[2022-01-16] MEDS ORDERED: BUPR-113 PO (17:01)
== END 2022-01-16 17:30 | disposition home or self-care (01) | DRG 750 ==
LOC: B3A 19:40
PROVIDERS: ADMIT Psychiatry & Neurology Psychiatry; ATTEND Psychiatry & Neurology Psychiatry
DX: F25.9 Schizoaffective disorder, unspecified (principal); R45.851 Suicidal ideations; F29 Unspecified psychosis not due to a substance or known physiological condition; E66.9 Obesity, unspecified; Z20.822 Contact with and (suspected) exposure to COVID-19; F19.10 Other psychoactive substance abuse, uncomplicated; K59.00 Constipation, unspecified; E78.5 Hyperlipidemia, unspecified; G47.00 Insomnia, unspecified; F41.9 Anxiety disorder, unspecified; K21.9 Gastro-esophageal reflux disease without esophagitis; Z68.33 Body mass index [BMI] 33.0-33.9, adult; Z56.0 Unemployment, unspecified; Z88.2 Allergy status to sulfonamides; Z72.0 Tobacco use
CPT/HCPCS: 80053; 80061; 80307; 81003; 82962; 83036; 84439; 84443; 85025; G0480